=== PATIENT | male | born 1940 | race Two or more races ===

== ENCOUNTER 2024-04-08 00:22 | Emergency (ER) | payer OTHER ==
[~2024-04-08] VITALS: Ht 172.7 cm; Wt 76.2 kg
[2024-04-08] MEDS ORDERED: TOPROL XL25 M1 PO (01:02)
[2024-04-08] MEDS ORDERED: LIPITOR40 M1 PO (01:02)
[2024-04-08] MEDS ORDERED: DOXAZOSIN MESYLA2 MG PO (01:03)
[2024-04-08] MEDS ORDERED: TROMBONEX CAPS1 EACH PO (01:03)
[2024-04-08] MEDS ORDERED: 0.9 % SODIUM CHLORIDE 1,000 ML IV STA (01:29)
[2024-04-08 03:22] LABS: HEMATOCRIT 30.3 % (39.0-48.0); MEAN CELL VOLUME 88.1 fL (80.0-100.00); MEAN CORPUSCULAR HGB CONC 33.5 g/dl (32.0-36.0); PLATELET COUNT 267 K/uL (150-450); RED BLOOD COUNT 3.43 M/uL (4.00-6.00); RED CELL DISTRIBUTION WIDTH 14.5 % (11.5-14.5)
[2024-04-08 03:50] LABS: CALCIUM 8.6 mg/dL (8.5-10.1); CREATININE SERUM 0.84 mg/dL (0.70-1.30); GFR 87.05; POTASSIUM 4.37 mEq/L (3.5-5.1)
[2024-04-08 03:52] LABS: HEMOGLOBIN 10.1 g/dL (13-16.00); MEAN CORPUSCULAR HEMOGLOBIN 29.4 pg (27.00-32.0)
[2024-04-08 04:05] LABS: INR 1.11; PARTIAL THROMBOPLASTIN TIME 24.5 SECONDS (22.0-34.0)
== END 2024-04-08 12:55 | disposition home or self-care (01) ==
LOC: ER 00:24
DX: K59.00 Constipation, unspecified (principal); R10.9 Unspecified abdominal pain
CPT/HCPCS: 36415; 74177; 96365; 96366; 99284; J7030; Q9965